=== PATIENT | female | born 1960 | race Asian ===

== ENCOUNTER 2018-06-11 23:38 | Inpatient (IN) | payer OTHER ==
[~2018-06-11] VITALS: Ht 172.7 cm; Wt 109.3 kg
[~2018-06-11 23:38] MED LIST: ABILIFY20 MG PO; AMLO2.5T PO; ASPIR-8181 MG PO; ATEN50TA36 PO; BENZ1TAB43 PO; BISACODYL LAXAT10 MG RE; CARB200T42 PO; CARDIZEM LA360 MG PO; CATAPRES-T0.1 MG/24 TOP; CLON0.3D TD; CLON0.5T36 PO; DIPH50CA30 PO; DIVA500T2 PO; DOCU100C10 PO; DULO60CA2 PO; FERROUS SULF325 M1 PO; FOLI1TAB26 PO; GABA300C2 PO; GUAI200S10 PO; HALO50IN4 IM; HALO5TAB10 PO; HALOPERIDOL2 MG PO; INSU100P SC; LACTTAB PO; LATA0.00 OP; LEVEMIR FL100 UNIT/M SC; LEVEMIR FLEXPEN SC; LIPITOR20 MG PO; LISI10TA11 PO; LOPERAMIDE2 MG PO; LORA1TAB17 PO; METF100038 PO; OMEP20CA PO; RISP25IN IM; SEROQUEL300 MG PO; TEGRETOL200 MG PO
[2018-06-11 23:44] VITALS: BP 141/84; TEMP 97.3
[2018-06-12] VITALS (12 sets, daily range): BP systolic 111–154; BP diastolic 58–88; TEMP 97.5–98.4; Ht 172.7 cm; Wt 109.3 kg
[2018-06-12 00:29] LABS: PLATELET COUNT 159 K/uL (152-353)
[2018-06-12 00:39] LABS: POTASSIUM 4.3 mmol/L (3.6-5.2)
[2018-06-12] MEDS ORDERED: FINGERSTIX (16:24)
[2018-06-12] MEDS ORDERED: TEGRETOL XR200 MG PO (16:26)
[2018-06-12] MEDS ORDERED: HALO50IN4 IM (16:27)
[2018-06-12] MEDS ORDERED: SEROQUEL400 MG PO (16:32)
[2018-06-12] MEDS ORDERED: LIPITOR40 MG PO (16:33)
[2018-06-12] MEDS ORDERED: LEVAQUIN250 MG PO (16:38)
[2018-06-12] MEDS ORDERED: FURO40TA93 PO (16:38)
== END 2018-06-12 15:20 | disposition other institution (70) | DRG 194 ==
LOC: ED 23:38 → ICU 06-12 02:30
PROVIDERS: ADMIT Emergency Medicine
DX: J18.8 Other pneumonia, unspecified organism (principal); G40.802 Other epilepsy, not intractable, without status epilepticus; N39.0 Urinary tract infection, site not specified; F20.89 Other schizophrenia; E03.8 Other specified hypothyroidism; K21.9 Gastro-esophageal reflux disease without esophagitis; I10 Essential (primary) hypertension; D64.89 Other specified anemias; R13.12 Dysphagia, oropharyngeal phase; E11.9 Type 2 diabetes mellitus without complications; E83.42 Hypomagnesemia; F71 Moderate intellectual disabilities; B96.20 Unspecified Escherichia coli [E. coli] as the cause of diseases classified elsewhere
CPT/HCPCS: 36415; 36600; 80053; 81000; 82550; 82805; 83880; 84484; 85027; 87040; 87077; 87086; 87088; 87186; 93005; 94664; 94760; 96365; 99284; J0456; J0696

== ENCOUNTER 2018-11-28 23:27 | Emergency (ER) | payer OTHER ==
[~2018-11-28] VITALS: Ht 172.7 cm; Wt 106.1 kg
[~2018-11-28 23:27] MED LIST changes: +DIVALPROEX500 MG PO; +FINGERSTIX; +FURO40TA93 PO; +LEVAQUIN250 MG PO; +LIPITOR40 MG PO; +QUET100T2 PO; +SEROQUEL400 MG PO; +TEGRETOL XR200 MG PO
[2018-11-29 00:05] LABS: PLATELET COUNT 172 K/uL (152-353)
[2018-11-29 00:13] LABS: POTASSIUM 4.2 mmol/L (3.6-5.2)
[2018-11-29 00:38] VITALS: BP 119/84; TEMP 97.6
[2018-11-29] MEDS ORDERED: ABILIFY MYCITE30 MG PO (04:22)
[2018-11-29] MEDS ORDERED: METF500T PO (04:23)
== END 2018-11-29 00:38 | disposition other institution (70) ==
LOC: ED 23:27
PROVIDERS: Emergency Medicine
DX: F28 Other psychotic disorder not due to a substance or known physiological condition (principal); R41.0 Disorientation, unspecified; Z04.6 Encounter for general psychiatric examination, requested by authority
CPT/HCPCS: 36415; 80053; 81000; 85027; 87077; 87086; 87088; 87186; 93005; 99285

== ENCOUNTER 2019-07-30 19:53 | Emergency (ER) | payer OTHER ==
[~2019-07-30] VITALS: Ht 165.1 cm; Wt 98.0 kg
[~2019-07-30 19:53] MED LIST changes: +ABILIFY MYCITE30 MG PO; +METF500T PO
[2019-07-30 20:16] LABS: PLATELET COUNT 206 K/uL (152-353)
[2019-07-30 20:24] LABS: POTASSIUM 3.5 mmol/L (3.6-5.2)
[2019-07-30 21:38] VITALS: BP 146/74; TEMP 98.2
[2019-07-30] MEDS ORDERED: AMLODIPINE BESYLATE PO (23:59)
[2019-07-31] MEDS ORDERED: DULO60CA2 PO (00:04)
[2019-07-31] MEDS ORDERED: LINZESS290 MCG PO (00:07)
[2019-07-31] MEDS ORDERED: MAGNSUS68 PO (00:08)
[2019-07-31] MEDS ORDERED: QUET100T2 PO (00:09)
[2019-07-31] MEDS ORDERED: SIMV40TA57 (00:09)
[2019-07-31] MEDS ORDERED: LOPERAMIDE2 MG PO (00:11)
[2019-07-31] MEDS ORDERED: BISACODYL LAXAT10 MG RE (00:11)
== END 2019-07-30 21:38 | disposition other institution (70) ==
LOC: ED 19:53
PROVIDERS: Family Medicine
DX: R45.1 Restlessness and agitation (principal); F03.91 Unspecified dementia, unspecified severity, with behavioral disturbance; N39.0 Urinary tract infection, site not specified; Z04.6 Encounter for general psychiatric examination, requested by authority
CPT/HCPCS: 36415; 80053; 81000; 85027; 87086; 87088; 93005; 99283

== ENCOUNTER 2020-02-07 19:39 | Emergency (ER) | payer OTHER ==
[~2020-02-07] VITALS: Ht 165.1 cm; Wt 97.5 kg
[2020-02-07 19:39] VITALS: BP 175/80; TEMP 98.1
[~2020-02-07 19:39] MED LIST changes: +ABILIFY MYCITE10 MG PO; +AMLODIPINE BESYLATE PO; +DULO30CA PO; +LINZESS290 MCG PO; +MAGNSUS68 PO; +RISP1TAB PO; +SIMV40TA57
[2020-02-07 21:19] LABS: PLATELET COUNT 195 K/uL (152-353)
[2020-02-07 21:38] LABS: POTASSIUM 4.4 mmol/L (3.6-5.2)
[2020-02-07] MEDS ORDERED: DULO60CA2 PO (23:42)
[2020-02-07] MEDS ORDERED: LORA1TAB17 PO (23:57)
[2020-02-08] MEDS ORDERED: METF500T PO
[2020-02-08] MEDS ORDERED: QUET100T2 PO (00:02)
[2020-02-08] MEDS ORDERED: TYLENOL325 MG PO (00:04)
== END 2020-02-07 22:43 | disposition other institution (70) ==
LOC: ED 19:39
PROVIDERS: Family Medicine
DX: R46.89 Other symptoms and signs involving appearance and behavior (principal); E11.65 Type 2 diabetes mellitus with hyperglycemia; Z79.4 Long term (current) use of insulin; Z11.59 Encounter for screening for other viral diseases; Z04.6 Encounter for general psychiatric examination, requested by authority
CPT/HCPCS: 36415; 80053; 81000; 85027; 87635; 93005; 96372; 99285; J1815; U0003